=== PATIENT | female | born 1940 | race Asian ===

== ENCOUNTER 2020-05-02 00:34 | Inpatient (IN) | payer MEDICARE, MEDICAID ==
[2020-05-02] VITALS (8 sets, daily range): BP systolic 122–150; BP diastolic 71–85
[~2020-05-02] VITALS: Ht 154.9 cm; Wt 51.3 kg
--- NOTE | 2020-05-02 00:43 | Emergency Room Report ---
History of Present Illness General Chief Complaint: To Be Triaged Source: Patient Present Illness [facility] This is a 80-year-old female with history of high blood pressure. She presents with chief complaint of shortness of breath and fever. Onset tonight. Family found her with altered mental status and shaking. She also wears coughing and has some shortness of breath. They called 911. No nausea no vomiting. No pain. Nothing made it better. Nothing made it worse. Did not take any medication. Allergies: Coded Allergies: No Known Allergies (Unverified , 05/02/20) COVID-19 Screening Contact w/high risk pt: No Recent Travel to affected area: No Experienced COVID-19 symptoms?: Yes COVID-19 symptoms experienced: Fever (T>100.4F or >38C), Shortness of Breath, Cough COVID-19 Testing performed RESIDENTIAL CARE FACILITY MANAGER: No Patient History Past Medical History: see triage record, old chart reviewed, HTN Past Surgical History: none Pertinent Family History: none Social History: Denies: smoking Now: No Immunizations: other Reviewed Nursing Documentation: PMH: Agreed; PSxH: Agreed Review of Systems Constitutional: Reports: fever, weakness Eye: Denies: eye pain, blurred vision ENT: Denies: ear pain, nose congestion, throat swelling Respiratory: Reports: cough, shortness of breath Cardiovascular: Denies: chest pain, palpitations Gastrointestinal: Denies: abdominal pain, diarrhea, nausea, vomiting Musculoskeletal: Denies: back pain, joint pain Skin: Denies: rash Neurological: Denies: headache, numbness Endocrine: Denies: increased thirst, increased urine Hematologic/Lymphatic: Denies: easy bruising All Other Systems: negative except mentioned in HPI Physical Exam Vitals with fever Sp02 EP Interpretation: reviewed, normal General Appearance: well appearing, alert, mild distress Head: normocephalic, atraumatic Eyes: bilateral eye PERRL, bilateral eye EOMI ENT: hearing grossly normal, normal pharynx Neck: full range of motion, supple, no meningismus Respiratory: chest non-tender, lungs clear, normal breath sounds Cardiovascular #1: regular rate, rhythm, no murmur Gastrointestinal: normal bowel sounds, non tender, no mass, no organomegaly, no bruit, non-distended Musculoskeletal: back normal, normal range of motion, gait/station normal Psychiatric: mood/affect normal Procedures Critical Care Time Critical Care Time Critical care is mandated in this patient who presented with sepsis from pneumonia and UTI. Patient require my urgent intervention to attenuate the risks of metabolic collapse which may lead to cardiovascular collapse and . Critical care time is 35 minutes excluding any reportable procedure. Critical care time included evaluation, multiple reevaluation, looking at old charts, interpreting laboratory and diagnostic data, discussing case with patient and family and consultants, and charting. Medical Decision Making Diagnostic Impression: Primary Impression: Sepsis Qualified Codes: A41.9 - Sepsis, unspecified organism Additional Impressions: CAP (community acquired pneumonia) Qualified Codes: J18.9 - Pneumonia, unspecified organism UTI (urinary tract infection) Qualified Codes: N30.00 - Acute cystitis without hematuria ACS (acute coronary syndrome) Suspected 2019 novel coronavirus infection Anemia Qualified Codes: D64.9 - Anemia, unspecified ER Course Patient presents with fever and rigors. Chest x-ray showed left lower lobe infiltrate. She also has a Porter tract infection. I suspect that she also has COVID infection even though her rapid COVID test was negative. She has elevated d-dimer, ferritin and C-reactive protein. She may have a false negative. Patient improved with IV fluids and antibiotics. Will admit for further monitoring and medication. I contacted Dr. David for admission. This patient was evaluated in the context of the global COVID-19 pandemic, which necessitated consideration that the patient might be at risk for infection with the [id number] virus that causes COVID-19. Institutional protocols and algorithms that pertain to the evaluation of patients at risk for COVID-19 and the state of rapid change based on information released by multiple regulatory bodies including the CDC and federal and state organizations. These policies and algorithms were followed during the patient' s care in the ED. EKG Diagnostic Results Rate: tachycardiac Rhythm: NSR ST Segments: other - NSST changes Rhythm Strip Diag. Results EP Interpretation: yes Rate: 88 Rhythm: NSR, no PVC's, no ectopy Chest X-Ray Diagnostic Results Chest X-Ray Diagnostic Results : Chest X-Ray Ordered: Yes # of Views/Limited/Complete: 1 View Indication: Shortness of Breath EP Interpretation: Yes Interpretation: no effusion, no pneumothorax, other - Left lower lobe infiltrate Impression: Other - Left lower lobe infiltrate Electronically Signed by: Edu Merida MD Status: improved Disposition: ADMITTED INPATIENT Condition: Serious Edu Merida MD May 02, 2020 00:43
[2020-05-02] MEDS ORDERED: Acetaminophen 500mg (ES) tab ORAL ONE (00:45)
[2020-05-02] MEDS ORDERED: cefTRIAXone 1 GM in NS 55 ML IVPB ONE (01:15)
[2020-05-02] MEDS ORDERED: Azithromycin 500 MG in NS 275 ML IV ONE (01:15)
[2020-05-02 01:16] LABS: HEMATOCRIT 35.2 % (37.0-47.0); HEMOGLOBIN 11.6 G/DL (12.0-16.0); MEAN CORPUSCULAR VOLUME 92 FL (80-99); PLATELET COUNT 166 K/UL (150-450); RED BLOOD COUNT 3.83 M/UL (4.20-5.40); RED CELL DISTRIBUTION WIDTH 11.6 % (11.6-14.8); WHITE BLOOD COUNT 13.8 K/UL (4.8-10.8)
[2020-05-02 01:16] LABS: BILIRUBIN, URINE NEGATIVE (NEGATIVE); GLUCOSE, URINE (UA) NEGATIVE (NEGATIVE); KETONES,URINE 1+ (NEGATIVE); LEUKOCYTE ESTERASE ,URINE 2+ (NEGATIVE); NITRITE,URINE POSITIVE (NEGATIVE); PH,URINE 6 (4.5-8.0); PROTEIN,URINE 3+ (NEGATIVE); UROBILINOGEN,URINE 4 MG/DL (0.0-1.0)
[2020-05-02 01:26] LABS: ANION GAP 14 mmol/L (5-15); BLOOD UREA NITROGEN 18 mg/dL (7-18); CALCIUM 8.2 MG/DL (8.5-10.1); CARBON DIOXIDE 22 MMOL/L (21-32); CHLORIDE 95 MMOL/L (98-107); CREATININE 1.2 MG/DL (0.55-1.30); POTASSIUM 4.1 MMOL/L (3.5-5.1); SODIUM 131 MMOL/L (136-145)
[2020-05-02 01:29] LABS: APPEARANCE,URINE SLIGHTLY CLOUDY; COLOR,URINE YELLOW
--- NOTE | 2020-05-02 01:43 | Diagnostic Imaging Report ---
EXAM: XR Chest, 1 View CLINICAL HISTORY: SOB TECHNIQUE: Frontal view of the chest. COMPARISON: No relevant prior studies available. FINDINGS: Lungs: Left basilar opacity. Pleural space: No acute findings Heart: cardiomegaly. Bones/joints: No acute findings. IMPRESSION: Severe cardiomegaly. Left basilar opacity, correlate with atelectasis, aspiration, or infection.
[2020-05-02 01:58] LABS: ALANINE AMINOTRANSFERASE 18 U/L (12-78); ALBUMIN 2.8 G/DL (3.4-5.0); ALBUMIN/GLOBULIN RATIO 0.7 (1.0-2.7); ALKALINE PHOSPHATASE 141 U/L (46-116); ASPARTATE AMINO TRANSFERASE 41 U/L (15-37); BILIRUBIN,TOTAL 1.2 MG/DL (0.2-1.0); CKMB 1.7 NG/ML (0.0-3.6); CREATINE KINASE 142 U/L (26-308); FERRITIN 479 NG/ML (8-388)
[2020-05-02 02:00] LABS: BILIRUBIN,DIRECT 0.3 MG/DL (0.0-0.3)
[2020-05-02] MEDS ORDERED: Enoxaparin 60mg Inj SUBQ ONE (02:15)
[2020-05-02] MEDS ORDERED: Aspirin Baby 81mg ORAL ONE (02:15)
--- NOTE | 2020-05-02 02:37 | Emergency Room Report ---
Sepsis Event Note Evaluation Current Stage of Sepsis: Sepsis Possible Source: Pulmonary, Genitourinary Focused Exam Allergies: Coded Allergies: No Known Allergies (Unverified , 05/02/20) Date Exam Occurred: May 02, 2020 Time Exam Occurred: 02:36 Laboratory Studies Laboratory Tests Test 05/02/20 00:45 05/02/20 00:50 White Blood Count 13.8 K/UL (4.8-10.8) H Red Blood Count 3.83 M/UL (4.20-5.40) L Hemoglobin 11.6 G/DL (12.0-16.0) L Hematocrit 35.2 % (37.0-47.0) L Mean Corpuscular Volume 92 FL (80-99) Mean Corpuscular Hemoglobin 30.3 PG (27.0-31.0) Mean Corpuscular Hemoglobin Concent 33.0 G/DL (32.0-36.0) Red Cell Distribution Width 11.6 % (11.6-14.8) Platelet Count 166 K/UL (150-450) Mean Platelet Volume 8.8 FL (6.5-10.1) Neutrophils (%) (Auto) % (45.0-75.0) Lymphocytes (%) (Auto) % (20.0-45.0) Monocytes (%) (Auto) % (1.0-10.0) Eosinophils (%) (Auto) % (0.0-3.0) Basophils (%) (Auto) % (0.0-2.0) D-Dimer 4.19 mg/L FEU (0.00-0.49) H Sodium Level 131 MMOL/L (136-145) L Potassium Level 4.1 MMOL/L (3.5-5.1) Chloride Level 95 MMOL/L (98-107) L Carbon Dioxide Level 22 MMOL/L (21-32) Anion Gap 14 mmol/L (5-15) Blood Urea Nitrogen 18 mg/dL (7-18) Creatinine 1.2 MG/DL (0.55-1.30) Estimat Glomerular Filtration Rate 43.3 mL/min (>60) Glucose Level 116 MG/DL (74-106) H Lactic Acid Level 2.50 mmol/L (0.4-2.0) H Calcium Level 8.2 MG/DL (8.5-10.1) L Ferritin 479 NG/ML (8-388) H Total Bilirubin 1.2 MG/DL (0.2-1.0) H Direct Bilirubin 0.3 MG/DL (0.0-0.3) Aspartate Amino Transf (AST/SGOT) 41 U/L (15-37) H Alanine Aminotransferase (ALT/SGPT) 18 U/L (12-78) Alkaline Phosphatase 141 U/L (46-116) H Total Creatine Kinase 142 U/L (26-308) Creatine Kinase MB 1.7 NG/ML (0.0-3.6) Creatine Kinase MB Relative Index 1.1 Troponin I 0.456 ng/mL (0.000-0.056) C-Reactive Protein, Quantitative 27.8 mg/dL (0.00-0.90) H Total Protein 6.9 G/DL (6.4-8.2) Albumin 2.8 G/DL (3.4-5.0) L Globulin 4.1 g/dL Albumin/Globulin Ratio 0.7 (1.0-2.7) L Urine Color Yellow Urine Appearance Slightly cloudy Urine pH 6 (4.5-8.0) Urine Specific [place] 1.010 (1.005-1.035) Urine Protein 3+ (NEGATIVE) H Urine Glucose (UA) Negative (NEGATIVE) Urine Ketones 1+ (NEGATIVE) H Urine Blood 3+ (NEGATIVE) H Urine Nitrite Positive (NEGATIVE) H Urine Bilirubin Negative (NEGATIVE) Urine Urobilinogen 4 MG/DL (0.0-1.0) H Urine Leukocyte Esterase 2+ (NEGATIVE) H Urine RBC 10-15 /HPF (0 - 2) H Urine WBC 40-60 /HPF (0 - 2) H Urine Squamous Epithelial Cells Few /LPF (NONE/OCC) Urine Bacteria Many /HPF (NONE) H Vital Signs Last 24 Hour Vital Signs Date Time Temp Pulse Resp B/P (MAP) Pulse Ox O2 Delivery O2 Flow Rate FiO2 05/02/20 00:52 100.9 87 16 145/71 (95) 96 Nasal Cannula 2.0 Respiratory Exam: Crackles Cardiovascular Exam: RRR Capillary Refill: Less Than 2 Seconds Peripheral Pulse: Strong Pulse Location: Radial Skin Exam: Normal Turgor Edu Merida MD May 02, 2020 02:37
[2020-05-02] MEDS ORDERED: Acetaminophen 500mg (ES) tab ORAL PRN (10:30)
[2020-05-02] MEDS ORDERED: FAMOTIDINE20 MG ORAL (10:55)
[2020-05-02] MEDS ORDERED: BENZTROPINE MESY1 MG ORAL (10:55)
[2020-05-02] MEDS ORDERED: CELECOXIB200 MG PO (11:03)
[2020-05-02] MEDS ORDERED: ALENDRONATE SOD10 MG ORAL (11:03)
[2020-05-02] MEDS ORDERED: BENICAR5 MG ORAL (11:03)
[2020-05-02] MEDS ORDERED: GABAPENTIN100 MG ORAL (11:03)
[2020-05-02] MEDS ORDERED: SINEMET 25-1001 EAC1 ORAL (11:03)
[2020-05-02] MEDS ORDERED: METOPROLOL SUCC25 MG ORAL (11:03)
[2020-05-02] MEDS ORDERED: ROPINIROLE HCL2 M1 PO (11:03)
[2020-05-02] MEDS ORDERED: TRAMADOL HCL100 M2 ORAL (11:03)
[2020-05-02] MEDS: Heparin 5000 units/ml inj SUBQ SCH ×2 (11:24→20:55)
[2020-05-02] MEDS: Aspirin EC 81mg tab ORAL SCH (11:24)
[2020-05-02] MEDS: Metoprolol Succinate XL 50mg tab ORAL SCH (11:25)
[2020-05-02] MEDS ORDERED: cefTRIAXone 1 GM in D5W 55 ML IVPB SCH (13:00)
--- NOTE | 2020-05-02 16:15 | Consultation ---
DATE OF CONSULTATION: 05/02/2020 INFECTIOUS DISEASES CONSULTATION REFERRING PHYSICIAN: Arsh Villa MD REASON FOR CONSULTATION: Pneumonia. HISTORY OF PRESENTING ILLNESS: This is a 80-year-old lady with history of hypertension, who came in with fever and shortness of breath along with cough. There is a concern for COVID-19 pneumonia and an infectious diseases consultation has been obtained for antibiotics. PAST MEDICAL HISTORY: History of hypertension. SOCIAL HISTORY: She does not smoke, drink, or use drugs. FAMILY HISTORY: Noncontributory. REVIEW OF SYSTEMS: RESPIRATORY: She has fever. She has cough. She has shortness of breath. No chest pain. CARDIAC: No chest pain. No palpitation. No dizziness. No syncope. GASTROINTESTINAL: No nausea. No vomiting. No abdominal pain or diarrhea. MEDICATIONS: As an inpatient, she is on ceftriaxone, aspirin, subcu heparin, Tylenol, metoprolol. ALLERGIES: No known drug allergies. PHYSICAL EXAMINATION: VITAL SIGNS: Temperature of 97.5, T-max of 100.9, pulse of 75, respiratory rate 18, blood pressure 149/74 O2 sat of 96% on room air. Examination deferred due to possibility of COVID-19 LABORATORY AND DIAGNOSTIC DATA: White count 13.8, hemoglobin 11.6, hematocrit 35.2, MCV 92, platelet count of 166. Sodium 131, potassium 4.1, chloride 95, bicarb 22, BUN 18, creatinine 1.2, glucose 116, calcium 8.2, ferritin 479. Total bilirubin 1.2, direct bilirubin 0.3. AST 41, ALT 18, alkaline phosphatase 141. CK 142, CK-MB 1.7. Troponin 0.456. C-reactive protein of 27.8. Total protein 6.9, albumin 2.8. UA is showing 40-60 white cells. COVID-19 rapid test is negative. Chest x-ray is showing left base opacity. ASSESSMENT: This is a 80-year-old lady with history of hypertension, who comes in with fever, cough, shortness of breath and is found to have: 1. Pneumonia, would like to rule out COVID-19 pneumonia as a possibility. Rapid test is negative. 2. Urinary tract infection. 3. Hypertension. 4. Elevated liver function tests. PLAN: 1. Continue ceftriaxone. 2. We will order urine cultures. 3. COVID-19 test is pending. 4. We will follow up cultures and adjust antibiotics accordingly. 5. Continue isolation. I would like to thank Dr. Villa for this consultation. Trupti Nuñez M.D. DR: NAVEEN JOB#: [id number] CC: Arsh Villa M.D.
[2020-05-02] MEDS: Levodopa/Carbidopa 25/100 tab ORAL SCH (20:52)
[2020-05-02] MEDS: rOPINIRole 0.25mg tab ORAL SCH (20:52)
[2020-05-02] MEDS: Metoprolol Tartrate 12.5mg TAB ORAL SCH (20:53)
--- NOTE | 2020-05-02 22:30 | Consultation ---
DATE OF CONSULTATION: 05/02/2020 CARDIOLOGY CONSULT CONSULTING PHYSICIAN: Jose Armando David M.D. REQUESTING PHYSICIAN: Arsh Villa M.D. 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 HISTORY OF PRESENT ILLNESS: This is a 80-year-old [place] female. She presented to the emergency room with shortness of breath and has been febrile. She has been confused, withdrawn, and lethargic according to family members and has been shaking at times uncontrollably. She has been alert during these periods and verbal and the shaking is not described as a seizure-like activity. The patient has been coughing and short of breath. No chest pain has been noted. No nausea or vomiting. No leg swelling. She has not been on any new medications. PAST MEDICAL HISTORY: Includes hypertension, osteoarthritis, osteoporosis, Parkinson disease. MEDICATIONS: Prior to admission, reviewed and reconciled. FAMILY HISTORY: Noncontributory. SOCIAL HISTORY: Negative for smoking, alcohol, or substance abuse. REVIEW OF SYSTEMS: A 10-point review of systems performed all negative other than noted above. PHYSICAL EXAMINATION: GENERAL: Awake, alert, thin and frail, in mild respiratory distress. VITAL SIGNS: Blood pressure 149/74, heart rate 75, respiratory rate 18, presently afebrile, oxygen saturation on room air 94% to 96%. Non-intension tremor, verbal. LUNGS: Bilateral breath sounds with rhonchi. CARDIAC: Regular rhythm. Rapid rate. Normal S1, S2. ABDOMEN: Soft, no edema. LABORATORY AND DIAGNOSTIC DATA: White count 13.8, hemoglobin 11.6. Sodium 131, potassium 4.1, chloride 95, bicarb 22, BUN 18, creatinine 1.2, glucose 116. Lactic acid 2.5. Troponin 0.456. Albumin 2.8. Urinalysis with 40 to 60 white cells. Chest x-ray with cardiomegaly, left basilar opacity. EKG with sinus tachycardia and nonspecific ST changes. IMPRESSION: 1. Acute myocardial ischemia versus possible [id number] myocardial infarction. 2. Community-acquired pneumonia. 3. Parkinson disease with tremor. 4. Urinary tract infection. 5. Severe sepsis. 6. Lactic acidosis. 7. Hyponatremia. 8. Hypochloremia. 9. Hypovolemia. 10. Elevated C-reactive protein. 11. Moderate protein-calorie malnutrition. 12. History of hypertension. PLAN: 1. Cardiac monitoring. 2. Antiplatelet therapy. 3. Consider beta-blockade if blood pressure parameters stable. 4. Saline hydration. 5. Intravenous antimicrobials. 6. Respiratory hygiene. 7. Await cultures and repeat COVID-19 as her first 1 was negative. 8. DVT prophylaxis. 9. Serial lactic acid levels. Jose Armando David M.D. DR: CODI JOB#: [id number] CC:
[2020-05-03] VITALS: BP 148/77
--- NOTE | 2020-05-03 00:29 | History and Physical Report ---
DATE OF ADMISSION: 05/02/2020 CHIEF COMPLAINTS: Pneumonia, possible COVID, respiratory insufficiency. HISTORY OF PRESENT ILLNESS: Ms. Friedman is a 80-year-old female. She has a history of hypertensive heart disease and presented with complaints of cough and congestion for one week. She is a poor historian. She is unable to provide any additional history except for the cough and congestion. She states she has a history of blood pressure problems. She denies any chest pain. She has had no known ill contacts. Does not know of any exposure to COVID patients. She was COVID negative in the ER. Chest x-ray showed a left lower lobe infiltrate. She had a fever and had a leukocytosis of 14,000. The patient was pancultured. She is now admitted for further evaluation and care. PAST MEDICAL HISTORY: As above. PAST SURGICAL HISTORY: None. CURRENT MEDICATIONS: The patient does not recall. ALLERGIES: None. FAMILY HISTORY: Unknown. SOCIAL HISTORY: The patient denies any history of tobacco, ethanol, or drugs. REVIEW OF SYSTEMS: GENERAL: Positive fevers, chills, but no night sweats. HEENT: No headaches or visual changes. CARDIOPULMONARY: Positive cough, congestion, and shortness of breath. GI: No nausea or vomiting. : No urgency or frequency. MUSCULOSKELETAL: No joint pain or swelling. NEURO: No evidence of history of seizures. PHYSICAL EXAMINATION: VITAL SIGNS: Temperature 97, pulse 77, respirations 20, blood pressure 150/78. GENERAL APPEARANCE: The patient is well-developed, in no apparent distress. Awake and alert. HEENT: Head is normocephalic, atraumatic. Pupils are equal, round, and reactive to light. Sclerae are anicteric. Oropharynx is clear. Mucous membranes are dry. NECK: Supple. HEART: Regular rate and rhythm without murmurs, rubs, or gallops. LUNGS: Clear to auscultation bilaterally. ABDOMEN: Soft, nontender, nondistended. EXTREMITIES: No clubbing, cyanosis, or edema. LABORATORY AND DIAGNOSTIC DATA: Chest x-ray showed left lower lobe infiltrate. EKG showed sinus rhythm. Sodium was 131, potassium is 4, BUN 18, creatinine is 1.2. Lactic acid was 2.4. Total bilirubin of 1.2. Troponin 0.456. C-reactive protein was 28. ASSESSMENT: This is an elderly female with a history of hypertension, admitted with complaints of cough and congestion secondary to community-acquired pneumonia, cannot rule out COVID-19. She also was noted to have hyponatremia, lactic acidosis, and elevated troponin. PLAN: IV antibiotics. ID consultation. Aspirin treatment. Beta blockade. Repeat troponin. Check a 2D-echo. Check a venous duplex. We will follow up pending cultures, monitor chest x-ray. Hydration with normal saline. Monitor sodium level. Arsh Villa M.D. DR: EMERALD JOB#: [id number] CC:
[2020-05-03 04:00] VITALS: BP 154/79
[2020-05-03 04:50] LABS: BASOPHILS % (AUTO) 0.2 % (0.0-2.0); HEMATOCRIT 31.5 % (37.0-47.0); HEMOGLOBIN 10.4 G/DL (12.0-16.0); LYMPHOCYTES % (AUTO) 10.2 % (20.0-45.0); MEAN CORPUSCULAR VOLUME 91 FL (80-99); MONOCYTES % (AUTO) 8.7 % (1.0-10.0); NEUTROPHILS % (AUTO) 80.9 % (45.0-75.0); PLATELET COUNT 195 K/UL (150-450); RED BLOOD COUNT 3.46 M/UL (4.20-5.40); RED CELL DISTRIBUTION WIDTH 11.8 % (11.6-14.8); WHITE BLOOD COUNT 10.1 K/UL (4.8-10.8)
[2020-05-03 05:05] LABS: ALANINE AMINOTRANSFERASE 12 U/L (12-78); ALBUMIN 2.3 G/DL (3.4-5.0); ALBUMIN/GLOBULIN RATIO 0.6 (1.0-2.7); ALKALINE PHOSPHATASE 110 U/L (46-116); ANION GAP 13 mmol/L (5-15); ASPARTATE AMINO TRANSFERASE 37 U/L (15-37); BILIRUBIN,TOTAL 0.4 MG/DL (0.2-1.0); BLOOD UREA NITROGEN 18 mg/dL (7-18); CALCIUM 7.2 MG/DL (8.5-10.1); CARBON DIOXIDE 21 MMOL/L (21-32); CHLORIDE 105 MMOL/L (98-107); CHOLESTEROL 141 MG/DL (< 200); HDL CHOLESTEROL 25 MG/DL (40-60); POTASSIUM 3.2 MMOL/L (3.5-5.1); SODIUM 139 MMOL/L (136-145); TRIGLYCERIDES 92 MG/DL (30-150)
[2020-05-03 08:00] VITALS: BP 142/56
[2020-05-03] MEDS: Metoprolol Tartrate 12.5mg TAB ORAL SCH (08:50)
--- NOTE | 2020-05-03 08:50 | General Progress Note ---
Assessment/Plan Problem List: (1) Anemia ICD Codes: D64.9 - Anemia, unspecified SNOMED: 063987707 Qualifiers: Qualified Codes: D64.9 - Anemia, unspecified (2) Sepsis ICD Codes: A41.9 - Sepsis, unspecified organism SNOMED: 83293164 Qualifiers: Qualified Codes: A41.9 - Sepsis, unspecified organism (3) UTI (urinary tract infection) ICD Codes: N39.0 - Urinary tract infection, site not specified SNOMED: 08913052 Qualifiers: Qualified Codes: N30.00 - Acute cystitis without hematuria (4) Suspected 2019 novel coronavirus infection ICD Codes: Z20.828 - Contact with and (suspected) exposure to other viral communicable diseases SNOMED: 853898121 (5) CAP (community acquired pneumonia) ICD Codes: J18.9 - Pneumonia, unspecified organism SNOMED: 600731806 Qualifiers: Qualified Codes: J18.9 - Pneumonia, unspecified organism (6) ACS (acute coronary syndrome) ICD Codes: I24.9 - Acute ischemic heart disease, unspecified SNOMED: 076190911 (7) Acute VT ICD Codes: I21.9 - Acute myocardial infarction, unspecified SNOMED: 55533033 Status: stable Assessment/Plan: cont current rx iv abx follow up cultures monitor cxr follow 2nd covid test swallow eval antiplt rx and B-blockade cards follow up Subjective ROS Limited/Unobtainable: No Constitutional: Reports: malaise, weakness HEENT: Reports: no symptoms Cardiovascular: Reports: no symptoms Respiratory: Reports: cough Gastrointestinal/Abdominal: Reports: no symptoms Genitourinary: Reports: no symptoms Neurologic/Psychiatric: Reports: anxiety Endocrine: Reports: no symptoms Hematologic/Lymphatic: Reports: no symptoms Allergies: Coded Allergies: No Known Allergies (Unverified , 05/02/20) All Systems: reviewed and negative except above Subjective no events. stable. no fever or chills. mild cough. 2nd covid test still pending. low k noted. on iv abx Objective Last 24 Hour Vital Signs Date Time Temp Pulse Resp B/P (MAP) Pulse Ox O2 Delivery O2 Flow Rate FiO2 05/03/20 04:00 98.2 61 18 154/79 (104) 94 05/03/20 04:00 71 7/12/20 00:00 57 05/03/20 00:00 98.0 59 19 148/77 (100) 95 05/02/20 21:00 Room Air 05/02/20 20:53 80 133/74 05/02/20 20:00 68 05/02/20 20:00 98.2 80 19 133/74 (93) 95 05/02/20 16:00 97.9 65 18 145/72 (96) 96 05/02/20 15:56 71 05/02/20 12:00 97.7 77 20 150/78 (102) 97 05/02/20 11:33 79 05/02/20 11:25 75 149/74 05/02/20 09:00 Room Air Intake and Output 05/02/20 05/03/20 19:00 07:00 Intake Total 360 ml 300 ml Balance 360 ml 300 ml Intake Oral 360 ml 300 ml # Voids 3 3 # Bowel Movements 1 Laboratory Tests 05/03/20 04:00: White Blood Count 10.1, Red Blood Count 3.46L, Hemoglobin 10.4L, Hematocrit 31.5L, Mean Corpuscular Volume 91, Mean Corpuscular Hemoglobin 30.0, Mean Corpuscular Hemoglobin Concent 33.0, Red Cell Distribution Width 11.8, Platelet Count 195, Mean Platelet Volume 8.5, Neutrophils (%) (Auto) 80.9H, Lymphocytes ( %) (Auto) 10.2L, Monocytes (%) (Auto) 8.7, Eosinophils (%) (Auto) 0.0, Basophils (%) (Auto) 0.2, Sodium Level 139, Potassium Level 3.2L, Chloride Level 105, Carbon Dioxide Level 21, Anion Gap 13, Blood Urea Nitrogen 18, Creatinine 1.0, Estimat Glomerular Filtration Rate 53.5, Glucose Level 140H, Calcium Level 7.2L, Magnesium Level 1.9, Total Bilirubin 0.4, Aspartate Amino Transf (AST/SGOT) 37, Alanine Aminotransferase (ALT/SGPT) 12, Alkaline Phosphatase 110, Troponin I 1.727H, Total Protein 5.9L, Albumin 2.3L, Globulin 3.6, Albumin/Globulin Ratio 0.6L, Triglycerides Level 92, Cholesterol Level 141 , LDL Cholesterol 98, HDL Cholesterol 25L, Cholesterol/HDL Ratio 5.6H Height (Feet): 5 Height (Inches): 1.00 Weight (Pounds): 110 General Appearance: WD/WN, no apparent distress, alert EENT: PERRL/EOMI, normal ENT inspection Neck: non-tender, normal alignment Cardiovascular: normal peripheral pulses, normal rate, regular rhythm Respiratory/Chest: chest wall non-tender, lungs clear, normal breath sounds Abdomen: normal bowel sounds, non tender, soft, no organomegaly Edema: no edema noted Arm (L), no edema noted Arm (R) Skin: normal pigmentation Lymphatic: normal anterior cervical (L), normal anterior cervical (R) Arsh Villa MD May 03, 2020 08:50
[2020-05-03] MEDS: Metoprolol Succinate XL 50mg tab ORAL SCH (08:51)
[2020-05-03] MEDS: Levodopa/Carbidopa 25/100 tab ORAL SCH ×3 (08:51→17:35)
[2020-05-03] MEDS: Aspirin EC 81mg tab ORAL SCH (08:51)
[2020-05-03] MEDS: Heparin 5000 units/ml inj SUBQ SCH ×2 (08:52→22:18)
[2020-05-03] MEDS: rOPINIRole 0.25mg tab ORAL SCH ×3 (08:53→17:35)
[2020-05-03] MEDS: Lisinopril 10mg tab ORAL SCH (08:59)
[2020-05-03 12:00] VITALS: BP 148/78
--- NOTE | 2020-05-03 12:46 | Infectious Diseases Prog Note ---
Assessment/Plan Assessment/Plan A; 1. Pneumonia, COVID-19 rapid test is negative. 2. Urinary tract infection. 3. Hypertension. 4. Elevated liver function tests. 5. Elevated troponin 6. anemia PLAN: 1. Continue ceftriaxone. 2. We will follow urine cultures. Subjective ROS Limited/Unobtainable: Yes Constitutional: Denies: fever Allergies: Coded Allergies: No Known Allergies (Unverified , 05/02/20) Objective Last 24 Hour Vital Signs Date Time Temp Pulse Resp B/P (MAP) Pulse Ox O2 Delivery O2 Flow Rate FiO2 05/03/20 09:00 Room Air 05/03/20 08:59 142/56 05/03/20 08:51 72 142/56 05/03/20 08:50 72 142/56 05/03/20 08:00 97.9 72 18 142/56 (84) 96 05/03/20 07:42 74 05/03/20 04:00 98.2 61 18 154/79 (104) 94 05/03/20 04:00 71 05/03/20 00:00 57 05/03/20 00:00 98.0 59 19 148/77 (100) 95 05/02/20 21:00 Room Air 05/02/20 20:53 80 133/74 05/02/20 20:00 68 05/02/20 20:00 98.2 80 19 133/74 (93) 95 05/02/20 16:00 97.9 65 18 145/72 (96) 96 05/02/20 15:56 71 Height (Feet): 5 Height (Inches): 1.00 Weight (Pounds): 110 General Appearance: no acute distress HEENT: mucous membranes moist Respiratory/Chest: lungs clear Cardiovascular: normal rate Abdomen: soft, non tender Extremities: no edema Skin: no rash Neurologic/Psychiatric: alert, responsive Microbiology Date/Time Source Procedure Growth Status 05/02/20 01:00 Blood Blood Culture - Preliminary NO GROWTH AFTER 24 HOURS Resulted 05/02/20 00:45 Blood Blood Culture - Preliminary Resulted 05/02/20 00:45 Nasopharynx SARS-CoV-2 RdRp Gene Assay - Final Complete 05/02/20 00:50 Urine,Clean Catch Urine Culture - Preliminary Gram Negative Bacillus 1 Resulted Laboratory Tests Test 05/03/20 04:00 7/12/20 11:45 White Blood Count 10.1 K/UL (4.8-10.8) Red Blood Count 3.46 M/UL (4.20-5.40) L Hemoglobin 10.4 G/DL (12.0-16.0) L Hematocrit 31.5 % (37.0-47.0) L Mean Corpuscular Volume 91 FL (80-99) Mean Corpuscular Hemoglobin 30.0 PG (27.0-31.0) Mean Corpuscular Hemoglobin Concent 33.0 G/DL (32.0-36.0) Red Cell Distribution Width 11.8 % (11.6-14.8) Platelet Count 195 K/UL (150-450) Mean Platelet Volume 8.5 FL (6.5-10.1) Neutrophils (%) (Auto) 80.9 % (45.0-75.0) H Lymphocytes (%) (Auto) 10.2 % (20.0-45.0) L Monocytes (%) (Auto) 8.7 % (1.0-10.0) Eosinophils (%) (Auto) 0.0 % (0.0-3.0) Basophils (%) (Auto) 0.2 % (0.0-2.0) Sodium Level 139 MMOL/L (136-145) Potassium Level 3.2 MMOL/L (3.5-5.1) L Chloride Level 105 MMOL/L (98-107) Carbon Dioxide Level 21 MMOL/L (21-32) Anion Gap 13 mmol/L (5-15) Blood Urea Nitrogen 18 mg/dL (7-18) Creatinine 1.0 MG/DL (0.55-1.30) Estimat Glomerular Filtration Rate 53.5 mL/min (>60) Glucose Level 140 MG/DL (74-106) H Calcium Level 7.2 MG/DL (8.5-10.1) L Magnesium Level 1.9 MG/DL (1.8-2.4) Total Bilirubin 0.4 MG/DL (0.2-1.0) Aspartate Amino Transf (AST/SGOT) 37 U/L (15-37) Alanine Aminotransferase (ALT/SGPT) 12 U/L (12-78) Alkaline Phosphatase 110 U/L (46-116) Troponin I 1.727 ng/mL (0.000-0.056) 1.899 ng/mL (0.000-0.056) Total Protein 5.9 G/DL (6.4-8.2) L Albumin 2.3 G/DL (3.4-5.0) L Globulin 3.6 g/dL Albumin/Globulin Ratio 0.6 (1.0-2.7) L Triglycerides Level 92 MG/DL (30-150) Cholesterol Level 141 MG/DL (< 200) LDL Cholesterol 98 mg/dL (<100) HDL Cholesterol 25 MG/DL (40-60) L Cholesterol/HDL Ratio 5.6 (3.3-4.4) H Current Medications Medications (Trade) Dose Ordered Sig/Trevor Route PRN Reason Start Time Stop Time Status Last Admin Dose Admin Acetaminophen (Tylenol) 500 mg Q4H PRN ORAL Mild Pain (Pain Scale 1-3) 05/02/20 10:30 06/01/20 10:29 05/03/20 02:32 Aspirin (Ecotrin) 81 mg DAILY ORAL 05/02/20 10:30 06/16/20 10:29 05/03/20 08:51 Carbidopa/Levodopa (Sinemet 25/100) 1 tab THREE TIMES A DAY ORAL 05/02/20 20:00 06/01/20 19:59 05/03/20 08:51 Heparin Sodium (Porcine) (Heparin 5000 units/ml) 5,000 units EVERY 12 HOURS SUBQ 05/02/20 10:30 06/16/20 10:29 05/03/20 08:52 Lisinopril (ZestriL) 10 mg DAILY ORAL 05/03/20 09:00 06/02/20 08:59 05/03/20 08:59 Metoprolol Succinate (Toprol XL) 25 mg DAILY ORAL 05/02/20 10:30 07/31/20 10:29 05/03/20 08:51 Metoprolol Tartrate (Lopressor) 12.5 mg Q12HR ORAL 05/02/20 21:00 07/31/20 20:59 05/03/20 08:50 Piperacillin Sod/ Tazobactam Sod 3.375 gm/Sodium Chloride 110 ml @ 27.5 mls/hr EVERY 8 HOURS IVPB 05/03/20 14:00 05/08/20 13:59 Ropinirole HCl (Requip) 0.25 mg THREE TIMES A DAY ORAL 05/02/20 20:30 06/01/20 20:29 05/03/20 08:53 Sodium Chloride 1,000 ml @ 75 mls/hr [id number] IV 05/02/20 11:00 06/01/20 10:59 05/03/20 00:54 Celio Hwang MD May 03, 2020 12:46
[2020-05-03] MEDS: Piperacillin/Tazobactam 3.375 GM in NS 110 ML IVPB SCH ×2 (13:49→22:19)
[2020-05-03 16:00] VITALS: BP 139/79
[2020-05-03 20:00] VITALS: BP 152/78
[2020-05-04] VITALS: BP 148/71
[2020-05-04 04:00] VITALS: BP 159/77
[2020-05-04] MEDS: Piperacillin/Tazobactam 3.375 GM in NS 110 ML IVPB SCH ×3 (05:50→21:41)
[2020-05-04 07:17] LABS: BASOPHILS % (AUTO) 0.5 % (0.0-2.0); EOSINOPHILS % (AUTO) 1.2 % (0.0-3.0); HEMATOCRIT 31.6 % (37.0-47.0); HEMOGLOBIN 10.3 G/DL (12.0-16.0); LYMPHOCYTES % (AUTO) 20.2 % (20.0-45.0); MEAN CORPUSCULAR VOLUME 93 FL (80-99); MONOCYTES % (AUTO) 12.5 % (1.0-10.0); NEUTROPHILS % (AUTO) 65.6 % (45.0-75.0); PLATELET COUNT 181 K/UL (150-450); RED BLOOD COUNT 3.41 M/UL (4.20-5.40); WHITE BLOOD COUNT 6.4 K/UL (4.8-10.8)
[2020-05-04 08:09] LABS: ALANINE AMINOTRANSFERASE 14 U/L (12-78); ALBUMIN 2.2 G/DL (3.4-5.0); ALBUMIN/GLOBULIN RATIO 0.6 (1.0-2.7); ALKALINE PHOSPHATASE 96 U/L (46-116); ANION GAP 11 mmol/L (5-15); ASPARTATE AMINO TRANSFERASE 52 U/L (15-37); BILIRUBIN,TOTAL 0.5 MG/DL (0.2-1.0); BLOOD UREA NITROGEN 18 mg/dL (7-18); CALCIUM 7.4 MG/DL (8.5-10.1); CARBON DIOXIDE 21 MMOL/L (21-32); CHLORIDE 111 MMOL/L (98-107); CREATININE 0.9 MG/DL (0.55-1.30); POTASSIUM 3.5 MMOL/L (3.5-5.1); SODIUM 143 MMOL/L (136-145)
[2020-05-04 08:26] VITALS: BP 176/76
[2020-05-04] MEDS: Heparin 5000 units/ml inj SUBQ SCH ×2 (08:49→21:40)
[2020-05-04] MEDS: rOPINIRole 0.25mg tab ORAL SCH ×3 (08:49→17:42)
[2020-05-04] MEDS: Levodopa/Carbidopa 25/100 tab ORAL SCH ×3 (08:49→17:42)
[2020-05-04] MEDS: Aspirin EC 81mg tab ORAL SCH (08:49)
[2020-05-04] MEDS: Lisinopril 10mg tab ORAL SCH (08:50)
[2020-05-04] MEDS ORDERED: Tubing IV Secondary IV ONE (09:10)
--- NOTE | 2020-05-04 09:46 | General Progress Note ---
Assessment/Plan Problem List: (1) Anemia ICD Codes: D64.9 - Anemia, unspecified SNOMED: 654169220 Qualifiers: Qualified Codes: D64.9 - Anemia, unspecified (2) Sepsis ICD Codes: A41.9 - Sepsis, unspecified organism SNOMED: 39952869 Qualifiers: Qualified Codes: A41.9 - Sepsis, unspecified organism (3) UTI (urinary tract infection) ICD Codes: N39.0 - Urinary tract infection, site not specified SNOMED: 08298457 Qualifiers: Qualified Codes: N30.00 - Acute cystitis without hematuria (4) Suspected 2019 novel coronavirus infection ICD Codes: Z20.828 - Contact with and (suspected) exposure to other viral communicable diseases SNOMED: 368186467 (5) CAP (community acquired pneumonia) ICD Codes: J18.9 - Pneumonia, unspecified organism SNOMED: 785863429 Qualifiers: Qualified Codes: J18.9 - Pneumonia, unspecified organism (6) ACS (acute coronary syndrome) ICD Codes: I24.9 - Acute ischemic heart disease, unspecified SNOMED: 728338343 (7) Acute [place] ICD Codes: I21.9 - Acute myocardial infarction, unspecified SNOMED: 38158314 Status: stable Assessment/Plan: cont current rx iv abx follow up culturesrepeat cxr dc ivf increase courtney follow 2nd covid test swallow eval antiplt rx and B-blockade cards follow up Subjective ROS Limited/Unobtainable: No Constitutional: Reports: malaise, weakness HEENT: Reports: no symptoms Cardiovascular: Reports: no symptoms Respiratory: Reports: cough Gastrointestinal/Abdominal: Reports: no symptoms Genitourinary: Reports: no symptoms Neurologic/Psychiatric: Reports: no symptoms Endocrine: Reports: no symptoms Hematologic/Lymphatic: Reports: no symptoms Allergies: Coded Allergies: No Known Allergies (Unverified , 05/02/20) All Systems: reviewed and negative except above Subjective no events. stable. no fever or chills. mild cough. 2nd covid test still pending. low k noted. on iv abx. bp up. on ivf, Objective Last 24 Hour Vital Signs Date Time Temp Pulse Resp B/P (MAP) Pulse Ox O2 Delivery O2 Flow Rate FiO2 05/04/20 08:51 52 176/76 05/04/20 08:50 176/76 05/04/20 08:26 97.9 20 176/76 (109) 100 05/04/20 04:00 41 05/04/20 04:00 98.4 51 20 159/77 (104) 98 05/04/20 00:00 98.6 51 20 148/71 (96) 95 05/04/20 00:00 49 05/03/20 21:00 54 152/78 05/03/20 21:00 Room Air 05/03/20 20:00 55 05/03/20 20:00 98.3 54 20 152/78 (102) 95 05/03/20 18:30 58 139/79 05/03/20 16:00 97.5 58 18 139/79 (99) 95 05/03/20 15:28 63 05/03/20 12:00 96.8 63 19 148/78 (101) 96 05/03/20 11:46 70 Intake and Output 05/03/20 05/04/20 19:00 07:00 Intake Total 240 ml 100 ml Balance 240 ml 100 ml Intake Oral 240 ml 100 ml # Voids 3 3 # Bowel Movements 2 1 Laboratory Tests 05/03/20 11:45: Troponin I 1.899H 05/04/20 06:00: White Blood Count 6.4, Red Blood Count 3.41L, Hemoglobin 10.3L, Hematocrit 31.6L , Mean Corpuscular Volume 93, Mean Corpuscular Hemoglobin 30.2, Mean Corpuscular Hemoglobin Concent 32.6, Red Cell Distribution Width 12.0, Platelet Count 181, Mean Platelet Volume 7.7, Neutrophils (%) (Auto) 65.6, Lymphocytes (% ) (Auto) 20.2, Monocytes (%) (Auto) 12.5H, Eosinophils (%) (Auto) 1.2, Basophils (%) (Auto) 0.5, Sodium Level 143, Potassium Level 3.5, Chloride Level 111H, Carbon Dioxide Level 21, Anion Gap 11, Blood Urea Nitrogen 18, Creatinine 0.9, Estimat Glomerular Filtration Rate > 60, Glucose Level 98, Calcium Level 7.4L, Total Bilirubin 0.5, Aspartate Amino Transf (AST/SGOT) 52H, Alanine Aminotransferase (ALT/SGPT) 14, Alkaline Phosphatase 96, Total Protein 5.7L, Albumin 2.2L, Globulin 3.5, Albumin/Globulin Ratio 0.6L Height (Feet): 5 Height (Inches): 1.00 Weight (Pounds): 110 Objective General Appearance: WD/WN, no apparent distress, alert EENT: PERRL/EOMI, normal ENT inspection Neck: non-tender, normal alignment Cardiovascular: normal peripheral pulses, normal rate, regular rhythm Respiratory/Chest: chest wall non-tender, lungs clear, normal breath sounds Abdomen: normal bowel sounds, non tender, soft, no organomegaly Edema: no edema noted Arm (L), no edema noted Arm (R) Skin: normal pigmentation Lymphatic: normal anterior cervical (L), normal anterior cervical (R) Arsh Villa MD May 04, 2020 09:46
--- NOTE | 2020-05-04 11:20 | Infectious Diseases Prog Note ---
Assessment/Plan Assessment/Plan antibiotics : zosyn A 1. gram negative sepsis 2. e.coli UTI 3. pneumonia COVID 19 test negative x 2 4. hypertension P 1. continue zosyn 2. will follow up cultures 3. abdominal US Subjective Constitutional: Denies: fever, chills Respiratory: Denies: shortness of breath, dry cough Gastrointestinal/Abdominal: Denies: nausea, vomiting, diarrhea Musculoskeletal: Denies: pain Allergies: Coded Allergies: No Known Allergies (Unverified , 05/02/20) Objective Last 24 Hour Vital Signs Date Time Temp Pulse Resp B/P (MAP) Pulse Ox O2 Delivery O2 Flow Rate FiO2 05/04/20 10:30 49 05/04/20 09:00 Room Air 05/04/20 08:51 52 176/76 05/04/20 08:50 176/76 05/04/20 08:26 97.9 20 176/76 (109) 100 05/04/20 04:00 41 05/04/20 04:00 98.4 51 20 159/77 (104) 98 05/04/20 00:00 98.6 51 20 148/71 (96) 95 05/04/20 00:00 49 05/03/20 21:00 54 152/78 05/03/20 21:00 Room Air 05/03/20 20:00 55 05/03/20 20:00 98.3 54 20 152/78 (102) 95 05/03/20 18:30 58 139/79 05/03/20 16:00 97.5 58 18 139/79 (99) 95 05/03/20 15:28 63 05/03/20 12:00 96.8 63 19 148/78 (101) 96 05/03/20 11:46 70 Height (Feet): 5 Height (Inches): 1.00 Weight (Pounds): 110 Respiratory/Chest: lungs clear Cardiovascular: normal rate, regular rhythm, no gallop/murmur Abdomen: soft, non tender Extremities: no edema Microbiology Date/Time Source Procedure Growth Status 05/02/20 01:00 Blood Blood Culture - Preliminary NO GROWTH AFTER 48 HOURS Resulted 05/02/20 00:45 Blood Blood Culture - Preliminary Gram Negative Bacillus 1 Resulted 05/02/20 09:55 Nasopharynx Coronavirus COVID-19 PCR (TOBY) - Final Complete 05/02/20 00:45 Nasopharynx SARS-CoV-2 RdRp Gene Assay - Final Complete 05/02/20 00:50 Urine,Clean Catch Urine Culture - Final Escherichia Coli Complete Laboratory Tests Test 05/03/20 11:45 05/04/20 06:00 Troponin I 1.899 ng/mL (0.000-0.056) White Blood Count 6.4 K/UL (4.8-10.8) Red Blood Count 3.41 M/UL (4.20-5.40) L Hemoglobin 10.3 G/DL (12.0-16.0) L Hematocrit 31.6 % (37.0-47.0) L Mean Corpuscular Volume 93 FL (80-99) Mean Corpuscular Hemoglobin 30.2 PG (27.0-31.0) Mean Corpuscular Hemoglobin Concent 32.6 G/DL (32.0-36.0) Red Cell Distribution Width 12.0 % (11.6-14.8) Platelet Count 181 K/UL (150-450) Mean Platelet Volume 7.7 FL (6.5-10.1) Neutrophils (%) (Auto) 65.6 % (45.0-75.0) Lymphocytes (%) (Auto) 20.2 % (20.0-45.0) Monocytes (%) (Auto) 12.5 % (1.0-10.0) H Eosinophils (%) (Auto) 1.2 % (0.0-3.0) Basophils (%) (Auto) 0.5 % (0.0-2.0) Sodium Level 143 MMOL/L (136-145) Potassium Level 3.5 MMOL/L (3.5-5.1) Chloride Level 111 MMOL/L (98-107) H Carbon Dioxide Level 21 MMOL/L (21-32) Anion Gap 11 mmol/L (5-15) Blood Urea Nitrogen 18 mg/dL (7-18) Creatinine 0.9 MG/DL (0.55-1.30) Estimat Glomerular Filtration Rate > 60 mL/min (>60) Glucose Level 98 MG/DL (74-106) Calcium Level 7.4 MG/DL (8.5-10.1) L Total Bilirubin 0.5 MG/DL (0.2-1.0) Aspartate Amino Transf (AST/SGOT) 52 U/L (15-37) H Alanine Aminotransferase (ALT/SGPT) 14 U/L (12-78) Alkaline Phosphatase 96 U/L (46-116) Total Protein 5.7 G/DL (6.4-8.2) L Albumin 2.2 G/DL (3.4-5.0) L Globulin 3.5 g/dL Albumin/Globulin Ratio 0.6 (1.0-2.7) L Current Medications Medications (Trade) Dose Ordered Sig/Trevor Route PRN Reason Start Time Stop Time Status Last Admin Dose Admin Acetaminophen (Tylenol) 500 mg Q4H PRN ORAL Mild Pain (Pain Scale 1-3) 05/02/20 10:30 06/01/20 10:29 05/03/20 02:32 Aspirin (Ecotrin) 81 mg DAILY ORAL 05/02/20 10:30 06/16/20 10:29 05/04/20 08:49 Carbidopa/Levodopa (Sinemet 25/100) 1 tab THREE TIMES A DAY ORAL 05/02/20 20:00 06/01/20 19:59 05/04/20 08:49 Heparin Sodium (Porcine) (Heparin 5000 units/ml) 5,000 units EVERY 12 HOURS SUBQ 05/02/20 10:30 06/16/20 10:29 05/04/20 08:49 Lisinopril (ZestriL) 20 mg DAILY ORAL 05/05/20 09:00 06/04/20 08:59 Metoprolol Tartrate (Lopressor) 25 mg Q12HR ORAL 05/03/20 21:00 08/01/20 20:59 Piperacillin Sod/ Tazobactam Sod 3.375 gm/Sodium Chloride 110 ml @ 27.5 mls/hr EVERY 8 HOURS IVPB 05/03/20 14:00 05/08/20 13:59 05/04/20 05:50 Potassium Chloride (K-Dur) 20 meq DAILY ORAL 05/04/20 10:00 08/02/20 09:59 05/04/20 10:16 Ropinirole HCl (Requip) 0.25 mg THREE TIMES A DAY ORAL 05/02/20 20:30 06/01/20 20:29 05/04/20 08:49 Trupti Nuñez MD May 04, 2020 11:20
[2020-05-04 12:00] VITALS: BP 154/67
--- NOTE | 2020-05-04 15:15 | Diagnostic Imaging Report ---
Indication: Cough Technique: One view of the chest Comparison: 05/02/2020 Findings: The left hemidiaphragm is obscured. This is a new finding. There is some atelectasis in the right perihilar region. There is some central bronchial wall thickening. Lungs pleural spaces are otherwise clear. The heart size is normal. Impression: Obscured left hemidiaphragm, basilar atelectasis/consolidation and/or pleural fluid possible Right perihilar atelectasis
--- NOTE | 2020-05-04 15:24 | Diagnostic Imaging Report ---
Indication: I lateral leg pain Technique: Grayscale and duplex images of the bilateral lower extremity veins Comparison: None Findings: Bilaterally, grayscale and duplex images demonstrate no evidence of intraluminal thrombus. Normal phasic Doppler waveforms, demonstrating normal augmentation response and no evidence of valvular insufficiency. Greater saphenous vein(s) and tibial veins are patent. Normal compressibility. Impression: Negative for evidence of lower extremity deep venous thrombosis bilaterally
--- NOTE | 2020-05-04 15:26 | Diagnostic Imaging Report ---
Indication: Abnormal liver function tests, abdominal pain Technique: Connelly-scale and duplex images of the upper abdomen were obtained Comparison: none Findings: There are bilateral pleural effusions Gallbladder is unremarkable, without stones, wall thickening, nor pericholecystic fluid. Sonographic Gonzalez's sign is negative. Common bile duct measures 2 mm in diameter. No intrahepatic biliary ductal dilatation. Liver demonstrates normal echogenicity, no focal abnormality. Portal vein and hepatic veins are patent. Pancreas is unremarkable. Spleen is unremarkable. Left kidney measures 10.4 cm in length. Right kidney measures 9.8 cm length. Both kidneys demonstrate normal echogenicity. There is no hydronephrosis. No focal abnormality . Non-aneurysmal abdominal aorta . Impression: Bilateral pleural effusions Negative for gallstones, dilated ducts, or other significant abdominal abnormality
[2020-05-04 16:00] VITALS: BP 147/68
[2020-05-04 20:00] VITALS: BP 157/77
[2020-05-05] VITALS: BP 160/75
[2020-05-05 04:00] VITALS: BP 159/88
[2020-05-05] MEDS: Piperacillin/Tazobactam 3.375 GM in NS 110 ML IVPB SCH (05:05)
--- NOTE | 2020-05-05 06:00 | Progress Note ---
DATE: 05/04/2020 CARDIOLOGY PROGRESS NOTE SUBJECTIVE: No chest pain or shortness of breath. No fevers or chills. Slight cough. OBJECTIVE: VITAL SIGNS: Blood pressure now increasing from 148/77 to 176/76, heart rate 41 to 64, respiratory rate 18, and afebrile. LUNGS: Few rhonchi at the right. CARDIAC: Regular rhythm and rate. Normal S1, S2. ABDOMEN: Soft. EXTREMITIES: No edema. DIAGNOSTIC DATA: Chest x-ray notable for obscured hemidiaphragm on the right. IMPRESSION: 1. Acute myocardial infarction. 2. Hypertensive heart disease with rising blood pressure trend. 3. Probable pneumonia. 4. Parkinson disease. 5. Acute diastolic congestive heart failure. 6. Pleural effusion. 7. Dysphagia. 8. Hypokalemia. 9. Sinus bradycardia, on beta-mary grace. PLAN: 1. Hold parameters for beta-mary grace if heart rates continue to decrease. 2. Advance antihypertensives. 3. Diuresis. 4. Continue anti-platelet therapy. 5. Antimicrobials and respiratory hygiene. 6. DVT prophylaxis. 7. Follow up troponin levels and natriuretic peptide assay. 8. Condition remains critical with guarded prognosis. Jose Armando David M.D. DR: NEETA JOB#: [id number] CC:
--- NOTE | 2020-05-05 06:00 | Progress Note ---
DATE: 05/03/2020 CARDIOLOGY PROGRESS NOTE SUBJECTIVE: The patient is alert. No distress. Shaking less. No chest pain. The troponin levels have been elevated. Monitored rhythm sinus with rare atrial ectopics. OBJECTIVE: VITAL SIGNS: Blood pressure 154/79, pulse 61, respirations 18, and room air oxygen 94%. LUNGS: Clear. CARDIAC: Regular rhythm and rate. Normal S1, S2 with a fourth heart sound. There is a 1/6 systolic lower left sternal border systolic murmur. ABDOMEN: Soft and nontender. EXTREMITIES: No edema. LABORATORY DATA: Sodium 139, potassium 3.2, bicarb 21, BUN 18, and creatinine 1. Troponin 1.727, repeated 1.899. EKG with sinus rhythm, nonspecific ST change. Albumin 2.3. Total cholesterol 141 with LDL 98 and HDL 25. IMPRESSION: 1. Acute myocardial infarction. 2. Hypokalemia. 3. Severe protein-calorie malnutrition. 4. Low HDL syndrome. 5. Anemia. PLAN: 1. Continue cardiac monitoring. 2. Advance beta-blockade. 3. Continue anti-platelet therapy. 4. Replace potassium. 5. Recheck magnesium. 6. No emergent indication for cardiac catheterization at this time. 7. Check chest radiograph. Jose Armando David M.D. DR: Myron JOB#: [id number] CC:
[2020-05-05 06:56] LABS: BASOPHILS % (AUTO) 1.1 % (0.0-2.0); EOSINOPHILS % (AUTO) 1.8 % (0.0-3.0); HEMOGLOBIN 10.9 G/DL (12.0-16.0); LYMPHOCYTES % (AUTO) 14.3 % (20.0-45.0); MEAN CORPUSCULAR VOLUME 93 FL (80-99); MONOCYTES % (AUTO) 9.7 % (1.0-10.0); NEUTROPHILS % (AUTO) 73.1 % (45.0-75.0); PLATELET COUNT 224 K/UL (150-450); RED BLOOD COUNT 3.67 M/UL (4.20-5.40); WHITE BLOOD COUNT 7.9 K/UL (4.8-10.8)
[2020-05-05 07:30] LABS: ALANINE AMINOTRANSFERASE 37 U/L (12-78); ALBUMIN 2.3 G/DL (3.4-5.0); ALBUMIN/GLOBULIN RATIO 0.7 (1.0-2.7); ALKALINE PHOSPHATASE 100 U/L (46-116); ANION GAP 11 mmol/L (5-15); ASPARTATE AMINO TRANSFERASE 108 U/L (15-37); BILIRUBIN,TOTAL 0.6 MG/DL (0.2-1.0); BLOOD UREA NITROGEN 9 mg/dL (7-18); CALCIUM 7.4 MG/DL (8.5-10.1); CARBON DIOXIDE 22 MMOL/L (21-32); CHLORIDE 109 MMOL/L (98-107); CREATININE 0.9 MG/DL (0.55-1.30); POTASSIUM 3.4 MMOL/L (3.5-5.1); SODIUM 142 MMOL/L (136-145)
[2020-05-05 08:00] VITALS: BP 166/86
[2020-05-05] MEDS: Aspirin EC 81mg tab ORAL SCH (08:34)
[2020-05-05] MEDS: Levodopa/Carbidopa 25/100 tab ORAL SCH ×3 (08:34→17:57)
[2020-05-05] MEDS: rOPINIRole 0.25mg tab ORAL SCH ×3 (08:34→17:57)
[2020-05-05] MEDS: Heparin 5000 units/ml inj SUBQ SCH ×2 (08:35→21:11)
[2020-05-05] MEDS ORDERED: Lisinopril 10mg tab ORAL SCH ×2 (09:00→21:00)
--- NOTE | 2020-05-05 11:11 | Infectious Diseases Prog Note ---
Assessment/Plan Assessment/Plan antibiotics : zosyn A 1. e.coli sepsis secondary to UTI 2. e.coli UTI 3. pneumonia COVID 19 test negative x 2 4. hypertension P 1. d/c zosyn 2. start ceftriaxone 3. will follow up cultures Subjective Constitutional: Denies: fever, chills Respiratory: Denies: shortness of breath, dry cough Gastrointestinal/Abdominal: Denies: nausea, vomiting, diarrhea Musculoskeletal: Denies: pain Allergies: Coded Allergies: No Known Allergies (Unverified , 05/02/20) Objective Last 24 Hour Vital Signs Date Time Temp Pulse Resp B/P (MAP) Pulse Ox O2 Delivery O2 Flow Rate FiO2 05/05/20 08:34 166/86 05/05/20 08:34 84 166/86 05/05/20 08:09 Room Air 05/05/20 08:00 98.2 84 21 166/86 (112) 97 05/05/20 04:00 70 05/05/20 04:00 97.9 87 20 159/88 (111) 94 05/05/20 00:00 99.1 70 19 160/75 (103) 96 05/05/20 00:00 73 05/04/20 21:41 68 152/74 05/04/20 21:00 Room Air 05/04/20 20:00 97.9 66 19 157/77 (103) 95 05/04/20 20:00 67 05/04/20 16:00 97.9 64 20 147/68 (94) 95 05/04/20 16:00 66 05/04/20 12:00 59 05/04/20 12:00 97.9 57 20 154/67 (96) 96 Height (Feet): 5 Height (Inches): 1.00 Weight (Pounds): 110 Respiratory/Chest: lungs clear Cardiovascular: normal rate, regular rhythm, no gallop/murmur Abdomen: soft, non tender Extremities: no edema Laboratory Tests Test 05/05/20 05:47 White Blood Count 7.9 K/UL (4.8-10.8) Red Blood Count 3.67 M/UL (4.20-5.40) L Hemoglobin 10.9 G/DL (12.0-16.0) L Hematocrit 34.0 % (37.0-47.0) L Mean Corpuscular Volume 93 FL (80-99) Mean Corpuscular Hemoglobin 29.7 PG (27.0-31.0) Mean Corpuscular Hemoglobin Concent 32.0 G/DL (32.0-36.0) Red Cell Distribution Width 12.0 % (11.6-14.8) Platelet Count 224 K/UL (150-450) Mean Platelet Volume 7.3 FL (6.5-10.1) Neutrophils (%) (Auto) 73.1 % (45.0-75.0) Lymphocytes (%) (Auto) 14.3 % (20.0-45.0) L Monocytes (%) (Auto) 9.7 % (1.0-10.0) Eosinophils (%) (Auto) 1.8 % (0.0-3.0) Basophils (%) (Auto) 1.1 % (0.0-2.0) Sodium Level 142 MMOL/L (136-145) Potassium Level 3.4 MMOL/L (3.5-5.1) L Chloride Level 109 MMOL/L (98-107) H Carbon Dioxide Level 22 MMOL/L (21-32) Anion Gap 11 mmol/L (5-15) Blood Urea Nitrogen 9 mg/dL (7-18) Creatinine 0.9 MG/DL (0.55-1.30) Estimat Glomerular Filtration Rate > 60 mL/min (>60) Glucose Level 110 MG/DL (74-106) H Calcium Level 7.4 MG/DL (8.5-10.1) L Magnesium Level 2.0 MG/DL (1.8-2.4) Total Bilirubin 0.6 MG/DL (0.2-1.0) Aspartate Amino Transf (AST/SGOT) 108 U/L (15-37) H Alanine Aminotransferase (ALT/SGPT) 37 U/L (12-78) Alkaline Phosphatase 100 U/L (46-116) Troponin I 0.316 ng/mL (0.000-0.056) Pro-B-Type Natriuretic Peptide 9345 pg/mL (0-125) H Total Protein 5.7 G/DL (6.4-8.2) L Albumin 2.3 G/DL (3.4-5.0) L Globulin 3.4 g/dL Albumin/Globulin Ratio 0.7 (1.0-2.7) L Current Medications Medications (Trade) Dose Ordered Sig/Trevor Route PRN Reason Start Time Stop Time Status Last Admin Dose Admin Acetaminophen (Tylenol) 500 mg Q4H PRN ORAL Mild Pain (Pain Scale 1-3) 05/02/20 10:30 06/01/20 10:29 05/03/20 02:32 Aspirin (Ecotrin) 81 mg DAILY ORAL 05/02/20 10:30 06/16/20 10:29 05/05/20 08:34 Carbidopa/Levodopa (Sinemet /) 1 tab THREE TIMES A DAY ORAL 05/02/20 20:00 06/01/20 19:59 05/05/20 08:34 Heparin Sodium (Porcine) (Heparin 5000 units/ml) 5,000 units EVERY 12 HOURS SUBQ 05/02/20 10:30 06/16/20 10:29 05/05/20 08:35 Lisinopril (ZestriL) 20 mg DAILY ORAL 05/05/20 09:00 06/04/20 08:59 05/05/20 08:34 Metoprolol Tartrate (Lopressor) 25 mg Q12HR ORAL 05/03/20 21:00 08/01/20 20:59 05/05/20 08:34 Piperacillin Sod/ Tazobactam Sod 3.375 gm/Sodium Chloride 110 ml @ 27.5 mls/hr EVERY 8 HOURS IVPB 05/03/20 14:00 05/08/20 13:59 05/05/20 05:05 Potassium Chloride (K-Dur) 20 meq DAILY ORAL 05/04/20 10:00 08/02/20 09:59 05/05/20 08:34 Ropinirole HCl (Requip) 0.25 mg THREE TIMES A DAY ORAL 05/02/20 20:30 06/01/20 20:29 05/05/20 08:34 Trupti Nuñez MD May 05, 2020 11:11
[2020-05-05 11:59] VITALS: BP 125/52
[2020-05-05] MEDS ORDERED: cefTRIAXone 1 GM in D5W 55 ML IVPB SCH (12:00)
[2020-05-05 16:00] VITALS: BP 156/86
--- NOTE | 2020-05-05 17:14 | General Progress Note ---
Assessment/Plan Problem List: (1) Anemia ICD Codes: D64.9 - Anemia, unspecified SNOMED: 183755855 Qualifiers: Qualified Codes: D64.9 - Anemia, unspecified (2) Sepsis ICD Codes: A41.9 - Sepsis, unspecified organism SNOMED: 17985191 Qualifiers: Qualified Codes: A41.9 - Sepsis, unspecified organism (3) UTI (urinary tract infection) ICD Codes: N39.0 - Urinary tract infection, site not specified SNOMED: 93104648 Qualifiers: Qualified Codes: N30.00 - Acute cystitis without hematuria (4) Suspected 2019 novel coronavirus infection ICD Codes: Z20.828 - Contact with and (suspected) exposure to other viral communicable diseases SNOMED: 631667957 (5) CAP (community acquired pneumonia) ICD Codes: J18.9 - Pneumonia, unspecified organism SNOMED: 982465578 Qualifiers: Qualified Codes: J18.9 - Pneumonia, unspecified organism (6) ACS (acute coronary syndrome) ICD Codes: I24.9 - Acute ischemic heart disease, unspecified SNOMED: 836095631 (7) Acute [place] ICD Codes: I21.9 - Acute myocardial infarction, unspecified SNOMED: 15068882 Status: stable Assessment/Plan: cont current rx iv abx per id dc ivf BP rx swallow eval noted antiplt rx and B-blockade cards follow up Subjective ROS Limited/Unobtainable: No Constitutional: Reports: malaise, weakness HEENT: Reports: no symptoms Cardiovascular: Reports: no symptoms Respiratory: Reports: cough Gastrointestinal/Abdominal: Reports: no symptoms Genitourinary: Reports: no symptoms Neurologic/Psychiatric: Reports: no symptoms Endocrine: Reports: no symptoms Hematologic/Lymphatic: Reports: no symptoms Allergies: Coded Allergies: No Known Allergies (Unverified , 05/02/20) All Systems: reviewed and negative except above Subjective no events. stable. no fever or chills. mild cough. Ucx with ecoli. covid neg x 2 Objective Last 24 Hour Vital Signs Date Time Temp Pulse Resp B/P (MAP) Pulse Ox O2 Delivery O2 Flow Rate FiO2 05/05/20 16:00 98.1 59 18 156/86 (109) 05/05/20 16:00 63 05/05/20 12:00 64 05/05/20 11:59 97.9 57 19 125/52 (76) 94 05/05/20 08:34 166/86 05/05/20 08:34 84 166/86 05/05/20 08:09 Room Air 05/05/20 08:00 83 05/05/20 08:00 98.2 84 21 166/86 (112) 97 05/05/20 04:00 70 05/05/20 04:00 97.9 87 20 159/88 (111) 94 05/05/20 00:00 99.1 70 19 160/75 (103) 96 05/05/20 00:00 73 05/04/20 21:41 68 152/74 05/04/20 21:00 Room Air 05/04/20 20:00 97.9 66 19 157/77 (103) 95 05/04/20 20:00 67 Intake and Output 05/04/20 05/05/20 19:00 07:00 Intake Total 1225 ml 200 ml Balance 1225 ml 200 ml Intake Oral 975 ml 200 ml Other 250 ml # Voids 4 Laboratory Tests 05/05/20 05:47: White Blood Count 7.9, Red Blood Count 3.67L, Hemoglobin 10.9L, Hematocrit 34.0L , Mean Corpuscular Volume 93, Mean Corpuscular Hemoglobin 29.7, Mean Corpuscular Hemoglobin Concent 32.0, Red Cell Distribution Width 12.0, Platelet Count 224, Mean Platelet Volume 7.3, Neutrophils (%) (Auto) 73.1, Lymphocytes (% ) (Auto) 14.3L, Monocytes (%) (Auto) 9.7, Eosinophils (%) (Auto) 1.8, Basophils (%) (Auto) 1.1, Sodium Level 142, Potassium Level 3.4L, Chloride Level 109H, Carbon Dioxide Level 22, Anion Gap 11, Blood Urea Nitrogen 9, Creatinine 0.9, Estimat Glomerular Filtration Rate > 60, Glucose Level 110H, Calcium Level 7.4L , Magnesium Level 2.0, Total Bilirubin 0.6, Aspartate Amino Transf (AST/SGOT) 108H, Alanine Aminotransferase (ALT/SGPT) 37, Alkaline Phosphatase 100, Troponin I 0.316H, Pro-B-Type Natriuretic Peptide 9345H, Total Protein 5.7L, Albumin 2.3L, Globulin 3.4, Albumin/Globulin Ratio 0.7L Height (Feet): 5 Height (Inches): 1.00 Weight (Pounds): 110 Objective General Appearance: WD/WN, no apparent distress, alert EENT: PERRL/EOMI, normal ENT inspection Neck: non-tender, normal alignment Cardiovascular: normal peripheral pulses, normal rate, regular rhythm Respiratory/Chest: chest wall non-tender, lungs clear, normal breath sounds Abdomen: normal bowel sounds, non tender, soft, no organomegaly Edema: no edema noted Arm (L), no edema noted Arm (R) Skin: normal pigmentation Lymphatic: normal anterior cervical (L), normal anterior cervical (R) Arsh Villa MD May 05, 2020 17:14
[2020-05-05 20:00] VITALS: BP 167/79
[2020-05-06] VITALS: BP 172/80
--- NOTE | 2020-05-06 01:44 | Progress Note ---
DATE: 05/05/2020 CARDIOLOGY PROGRESS NOTE SUBJECTIVE: Patient has no chest pain or shortness of breath. Monitor, sinus rhythm with rare atrial ectopy. PHYSICAL EXAMINATION: VITAL SIGNS: Blood pressure , respirations 18, afebrile, heart rate 59 to 84. LUNGS: Clear. CARDIAC: Regular. Normal S1, S2 with a fourth heart sound. ABDOMEN: Soft. EXTREMITIES: No edema. LABORATORY DATA: Troponin has decreased to 0.3. Natriuretic peptide is 9300. Albumin 2.3. Potassium 3.4. IMPRESSION: 1. Acute myocardial infarction. 2. Acute on chronic diastolic congestive heart failure. 3. Hypertensive heart disease. 4. Hypokalemia. 5. Parkinson disease with dementia. 6. Urinary tract infection. 7. Bradycardia, resolved with decreased dose of beta-blockers. PLAN: 1. Cardiac monitoring. 2. Antimicrobials. 3. Maintain beta-mary grace. 4. Titrate lisinopril. 5. Diuresis. Jose Armando David M.D. DR: JOAQUIN JOB#: [id number] CC:
[2020-05-06 04:00] VITALS: BP 144/78
[2020-05-06 07:55] LABS: ALANINE AMINOTRANSFERASE 63 U/L (12-78); ALBUMIN 2.5 G/DL (3.4-5.0); ALBUMIN/GLOBULIN RATIO 0.7 (1.0-2.7); ALKALINE PHOSPHATASE 98 U/L (46-116); ANION GAP 10 mmol/L (5-15); ASPARTATE AMINO TRANSFERASE 69 U/L (15-37); BILIRUBIN,TOTAL 0.6 MG/DL (0.2-1.0); BLOOD UREA NITROGEN 8 mg/dL (7-18); CALCIUM 8.5 MG/DL (8.5-10.1); CARBON DIOXIDE 24 MMOL/L (21-32); CHLORIDE 102 MMOL/L (98-107); CREATININE 0.9 MG/DL (0.55-1.30); POTASSIUM 3.7 MMOL/L (3.5-5.1); SODIUM 136 MMOL/L (136-145)
[2020-05-06 08:00] VITALS: BP 139/76
[2020-05-06] MEDS: rOPINIRole 0.25mg tab ORAL SCH ×3 (08:47→17:36)
[2020-05-06] MEDS: Heparin 5000 units/ml inj SUBQ SCH ×2 (08:47→21:50)
[2020-05-06] MEDS: Aspirin EC 81mg tab ORAL SCH (08:47)
[2020-05-06] MEDS: Levodopa/Carbidopa 25/100 tab ORAL SCH ×3 (08:47→17:36)
[2020-05-06] MEDS: Lisinopril 20mg tab ORAL SCH ×2 (08:48→21:51)
--- NOTE | 2020-05-06 10:38 | Infectious Diseases Prog Note ---
Assessment/Plan Assessment/Plan antibiotics : ceftriaxone A 1. e.coli sepsis secondary to UTI 2. e.coli UTI 3. pneumonia COVID 19 test negative x 2 4. hypertension P 1. d/c ceftriaxone 2. start and continue po levoquin 5 more days 3. will follow up cultures Subjective Constitutional: Denies: fever, chills Respiratory: Denies: shortness of breath, dry cough Gastrointestinal/Abdominal: Denies: nausea, vomiting, diarrhea Musculoskeletal: Denies: pain Allergies: Coded Allergies: No Known Allergies (Unverified , 05/02/20) Objective Last 24 Hour Vital Signs Date Time Temp Pulse Resp B/P (MAP) Pulse Ox O2 Delivery O2 Flow Rate FiO2 05/06/20 08:48 139/76 05/06/20 08:48 87 139/76 05/06/20 08:00 98.9 87 17 139/76 (97) 98 05/06/20 04:00 64 05/06/20 04:00 98.1 67 19 144/78 (100) 95 05/06/20 00:00 68 05/06/20 00:00 98.1 68 19 172/80 (110) 98 05/05/20 21:10 169/79 05/05/20 21:10 64 169/79 05/05/20 21:00 Room Air 05/05/20 20:00 63 05/05/20 20:00 96.4 64 19 167/79 (108) 98 05/05/20 16:00 98.1 59 18 156/86 (109) 05/05/20 16:00 63 05/05/20 12:00 64 05/05/20 11:59 97.9 57 19 125/52 (76) 94 Height (Feet): 5 Height (Inches): 1.00 Weight (Pounds): 110 Respiratory/Chest: lungs clear Cardiovascular: normal rate, regular rhythm, no gallop/murmur Abdomen: soft, non tender Extremities: no edema Laboratory Tests Test 05/06/20 06:29 Sodium Level 136 MMOL/L (136-145) Potassium Level 3.7 MMOL/L (3.5-5.1) Chloride Level 102 MMOL/L (98-107) Carbon Dioxide Level 24 MMOL/L (21-32) Anion Gap 10 mmol/L (5-15) Blood Urea Nitrogen 8 mg/dL (7-18) Creatinine 0.9 MG/DL (0.55-1.30) Estimat Glomerular Filtration Rate > 60 mL/min (>60) Glucose Level 122 MG/DL (74-106) H Calcium Level 8.5 MG/DL (8.5-10.1) Magnesium Level 1.7 MG/DL (1.8-2.4) L Total Bilirubin 0.6 MG/DL (0.2-1.0) Aspartate Amino Transf (AST/SGOT) 69 U/L (15-37) H Alanine Aminotransferase (ALT/SGPT) 63 U/L (12-78) Alkaline Phosphatase 98 U/L (46-116) Troponin I 0.197 ng/mL (0.000-0.056) Total Protein 6.3 G/DL (6.4-8.2) L Albumin 2.5 G/DL (3.4-5.0) L Globulin 3.8 g/dL Albumin/Globulin Ratio 0.7 (1.0-2.7) L Current Medications Medications (Trade) Dose Ordered Sig/Trevor Route PRN Reason Start Time Stop Time Status Last Admin Dose Admin Acetaminophen (Tylenol) 500 mg Q4H PRN ORAL Mild Pain (Pain Scale 1-3) 05/02/20 10:30 06/01/20 10:29 05/03/20 02:32 Aspirin (Ecotrin) 81 mg DAILY ORAL 05/02/20 10:30 06/16/20 10:29 05/06/20 08:47 Carbidopa/Levodopa (Sinemet 25/100) 1 tab THREE TIMES A DAY ORAL 05/02/20 20:00 06/01/20 19:59 05/06/20 08:47 Ceftriaxone Sodium 1 gm/ Dextrose 55 ml @ 110 mls/hr Q24H IVPB 05/05/20 12:00 05/12/20 11:59 05/05/20 12:07 Heparin Sodium (Porcine) (Heparin 5000 units/ml) 5,000 units EVERY 12 HOURS SUBQ 05/02/20 10:30 06/16/20 10:29 05/06/20 08:47 Lisinopril (PriniviL) 20 mg Q12HR ORAL 05/06/20 09:00 06/04/20 08:59 05/06/20 08:48 Magnesium Sulfate 100 ml @ 100 mls/hr Q1H IVPB 05/06/20 10:00 05/06/20 11:59 Metoprolol Tartrate (Lopressor) 25 mg Q12HR ORAL 05/03/20 21:00 08/01/20 20:59 05/06/20 08:48 Potassium Chloride (K-Dur) 20 meq DAILY ORAL 05/04/20 10:00 08/02/20 09:59 05/06/20 08:48 Ropinirole HCl (Requip) 0.25 mg THREE TIMES A DAY ORAL 05/02/20 20:30 06/01/20 20:29 05/06/20 08:47 Trupti Nuñez MD May 06, 2020 10:38
[2020-05-06] MEDS ORDERED: Levofloxacin 500mg tab ORAL SCH (10:40)
[2020-05-06 12:00] VITALS: BP 152/76
[2020-05-06 16:00] VITALS: BP 162/87
--- NOTE | 2020-05-06 17:00 | General Progress Note ---
Assessment/Plan Problem List: (1) Anemia ICD Codes: D64.9 - Anemia, unspecified SNOMED: 709120276 Qualifiers: Qualified Codes: D64.9 - Anemia, unspecified (2) Sepsis ICD Codes: A41.9 - Sepsis, unspecified organism SNOMED: 60587839 Qualifiers: Qualified Codes: A41.9 - Sepsis, unspecified organism (3) UTI (urinary tract infection) ICD Codes: N39.0 - Urinary tract infection, site not specified SNOMED: 67612925 Qualifiers: Qualified Codes: N30.00 - Acute cystitis without hematuria (4) Suspected 2019 novel coronavirus infection ICD Codes: Z20.828 - Contact with and (suspected) exposure to other viral communicable diseases SNOMED: 123147762 (5) CAP (community acquired pneumonia) ICD Codes: J18.9 - Pneumonia, unspecified organism SNOMED: 959542901 Qualifiers: Qualified Codes: J18.9 - Pneumonia, unspecified organism (6) ACS (acute coronary syndrome) ICD Codes: I24.9 - Acute ischemic heart disease, unspecified SNOMED: 484648781 (7) Acute [place] ICD Codes: I21.9 - Acute myocardial infarction, unspecified SNOMED: 19659774 Status: stable Assessment/Plan: cont current rx- improving iv abx per id dc ivf BP rx swallow eval noted antiplt rx and B-blockade cards follow up pt/ot encourage po Subjective ROS Limited/Unobtainable: Yes Constitutional: Reports: no symptoms HEENT: Reports: no symptoms Cardiovascular: Reports: no symptoms Respiratory: Reports: cough Gastrointestinal/Abdominal: Reports: no symptoms Genitourinary: Reports: no symptoms Neurologic/Psychiatric: Reports: no symptoms Endocrine: Reports: no symptoms Hematologic/Lymphatic: Reports: no symptoms Allergies: Coded Allergies: No Known Allergies (Unverified , 05/02/20) All Systems: reviewed and negative except above Subjective no events. stable. no fever or chills. mild cough. Ucx with ecoli. covid neg x 2 duplex neg. abd us neg Objective Last 24 Hour Vital Signs Date Time Temp Pulse Resp B/P (MAP) Pulse Ox O2 Delivery O2 Flow Rate FiO2 05/06/20 16:00 98.2 63 18 162/87 (112) 98 05/06/20 12:00 96.6 57 18 152/76 (101) 96 7/15/20 11:48 55 05/06/20 09:00 Room Air 05/06/20 08:48 139/76 05/06/20 08:48 87 139/76 05/06/20 08:00 98.9 87 17 139/76 (97) 98 05/06/20 07:40 98 05/06/20 04:00 64 05/06/20 04:00 98.1 67 19 144/78 (100) 95 05/06/20 00:00 68 05/06/20 00:00 98.1 68 19 172/80 (110) 98 05/05/20 21:10 169/79 05/05/20 21:10 64 169/79 05/05/20 21:00 Room Air 05/05/20 20:00 63 05/05/20 20:00 96.4 64 19 167/79 (108) 98 Intake and Output 05/05/20 05/06/20 19:00 07:00 Intake Total 1680 ml 300 ml Output Total 910 ml Balance 770 ml 300 ml Intake Oral 1680 ml 300 ml Output Urine Total 910 ml # Voids 6 3 # Bowel Movements 2 2 Laboratory Tests 05/06/20 06:29: Sodium Level 136, Potassium Level 3.7, Chloride Level 102, Carbon Dioxide Level 24, Anion Gap 10, Blood Urea Nitrogen 8, Creatinine 0.9, Estimat Glomerular Filtration Rate > 60, Glucose Level 122H, Calcium Level 8.5, Magnesium Level 1.7L, Total Bilirubin 0.6, Aspartate Amino Transf (AST/SGOT) 69H, Alanine Aminotransferase (ALT/SGPT) 63, Alkaline Phosphatase 98, Troponin I 0.197H, Total Protein 6.3L, Albumin 2.5L, Globulin 3.8, Albumin/Globulin Ratio 0.7L Height (Feet): 5 Height (Inches): 1.00 Weight (Pounds): 113 Objective General Appearance: WD/WN, no apparent distress, alert EENT: PERRL/EOMI, normal ENT inspection Neck: non-tender, normal alignment Cardiovascular: normal peripheral pulses, normal rate, regular rhythm Respiratory/Chest: chest wall non-tender, lungs clear, normal breath sounds Abdomen: normal bowel sounds, non tender, soft, no organomegaly Edema: no edema noted Arm (L), no edema noted Arm (R) Skin: normal pigmentation Lymphatic: normal anterior cervical (L), normal anterior cervical (R) Arsh Villa MD May 06, 2020 17:00
[2020-05-06 20:00] VITALS: BP 153/72
[2020-05-07] VITALS: BP_SYST 130; BP_SYST 150; BP_DIAS 75
[2020-05-07 04:00] VITALS: BP 158/73
--- NOTE | 2020-05-07 04:15 | Progress Note ---
DATE: 05/06/2020 SUBJECTIVE: No chest pain. Less short of breath. Blood pressure parameters are slightly better. Monitor with no bradycardias, sinus rhythm persists with rare atrial ectopy. PHYSICAL EXAMINATION: VITAL SIGNS: Blood pressure 162/87, pulse 63, respirations 18. LUNGS: Clear. CARDIAC: Regular. Normal S1 and S2 with a 1/6 systolic murmur at lower left sternal border. ABDOMEN: Soft. EXTREMITIES: No edema. IMPRESSION: 1. Acute myocardial infarction, resolved. 2. Lactic acidosis. 3. Hypertensive heart disease with labile blood pressure. 4. Degenerative aortic valve disease. 5. Axrmjzqi-ho-amyrvz pulmonary hypertension. 6. Sinus bradycardia, resolved on lower beta-mary grace dosing. 7. Parkinson disease with dementia. PLAN: 1. Advance antihypertensives. Add long-acting nitrates. 2. Continue beta-mary grace and anti-platelet therapy. 3. Additional diuresis. 4. Discharge planning. 5. Avoiding statin drug due to very low lipid parameters. Jose Armando David M.D. DR: VERNON JOB#: [id number] CC:
[2020-05-07 08:00] VITALS: BP 164/84
[2020-05-07] MEDS ORDERED: Metoprolol Succinate XL 50mg tab ORAL SCH (09:00)
[2020-05-07] MEDS ORDERED: Imdur 30mg tab ORAL SCH (09:00)
[2020-05-07] MEDS ORDERED: Lisinopril 20mg tab ORAL SCH (09:00)
--- NOTE | 2020-05-07 09:27 | Infectious Diseases Prog Note ---
Assessment/Plan Assessment/Plan A; 1. Pneumonia, COVID19 test X 2 negative. 2. Urinary tract infection. 3. Hypertension. 4. Elevated liver function tests. 5. Elevated troponin 6. anemia 7. E.coli sepsis PLAN: 1. Continue Levaquin X 4 days Subjective ROS Limited/Unobtainable: Yes Constitutional: Denies: fever Allergies: Coded Allergies: No Known Allergies (Unverified , 05/02/20) Objective Last 24 Hour Vital Signs Date Time Temp Pulse Resp B/P (MAP) Pulse Ox O2 Delivery O2 Flow Rate FiO2 05/07/20 08:00 96.8 76 20 164/84 (110) 96 05/07/20 04:00 54 05/07/20 04:00 98.6 61 18 158/73 (101) 92 05/07/20 00:00 52 05/07/20 00:00 97.9 61 19 150/75 (100) 92 05/06/20 21:51 153/72 05/06/20 21:51 67 153/72 05/06/20 21:00 Room Air 05/06/20 20:00 97.9 67 19 153/72 (99) 95 05/06/20 20:00 62 05/06/20 16:00 98.2 63 18 162/87 (112) 98 05/06/20 15:30 61 05/06/20 12:00 96.6 57 18 152/76 (101) 96 05/06/20 11:48 55 Height (Feet): 5 Height (Inches): 1.00 Weight (Pounds): 113 General Appearance: no acute distress HEENT: mucous membranes moist Respiratory/Chest: lungs clear Cardiovascular: normal rate Abdomen: soft, non tender Extremities: no edema Neurologic/Psychiatric: alert, responsive Current Medications Medications (Trade) Dose Ordered Sig/Trevor Route PRN Reason Start Time Stop Time Status Last Admin Dose Admin Acetaminophen (Tylenol) 500 mg Q4H PRN ORAL Mild Pain (Pain Scale 1-3) 05/02/20 10:30 06/01/20 10:29 05/03/20 02:32 Aspirin (Ecotrin) 81 mg DAILY ORAL 05/02/20 10:30 06/16/20 10:29 05/06/20 08:47 Carbidopa/Levodopa (Sinemet /) 1 tab THREE TIMES A DAY ORAL 05/02/20 20:00 06/01/20 19:59 05/06/20 17:36 Heparin Sodium (Porcine) (Heparin 5000 units/ml) 5,000 units EVERY 12 HOURS SUBQ 05/02/20 10:30 06/16/20 10:29 05/06/20 21:50 Isosorbide Mononitrate (Imdur) 30 mg DAILY ORAL 05/07/20 09:00 06/06/20 08:59 Levofloxacin (Levaquin) 250 mg DAILY ORAL 05/07/20 09:00 05/14/20 08:59 Lisinopril (PriniviL) 40 mg DAILY ORAL 05/07/20 09:00 06/06/20 08:59 Metoprolol Succinate (Toprol XL) 50 mg DAILY ORAL 05/07/20 09:00 08/05/20 08:59 Potassium Chloride (K-Dur) 20 meq DAILY ORAL 05/04/20 10:00 08/02/20 09:59 05/06/20 08:48 Ropinirole HCl (Requip) 0.25 mg THREE TIMES A DAY ORAL 05/02/20 20:30 06/01/20 20:29 05/06/20 17:36 Celio Hwang MD May 07, 2020 09:27
[2020-05-07] MEDS: rOPINIRole 0.25mg tab ORAL SCH (09:37)
[2020-05-07] MEDS: Levodopa/Carbidopa 25/100 tab ORAL SCH (09:38)
[2020-05-07] MEDS: Heparin 5000 units/ml inj SUBQ SCH (09:38)
[2020-05-07] MEDS: Aspirin EC 81mg tab ORAL SCH (09:39)
[2020-05-07] MEDS ORDERED: ASPIRIN EC81 MG ORAL (11:06)
[2020-05-07] MEDS ORDERED: ISOSORBIDE MONO30 M1 ORAL (11:06)
[2020-05-07] MEDS ORDERED: LEVOFLOXACIN250 MG ORAL (11:06)
[2020-05-07 11:52] VITALS: BP 176/91
--- NOTE | 2020-05-08 01:44 | Progress Note ---
DATE: 05/07/2020 CARDIOLOGY PROGRESS NOTE SUBJECTIVE: The patient has no chest pain or shortness of breath. She is anxious to go home. No fevers. Urination without discomfort. OBJECTIVE: VITAL SIGNS: Vitals slightly elevated with blood pressure up to 164/84, oxygen saturation 95%. Monitor, sinus rhythm, occasional bradycardia in the 50s, asymptomatic. LUNGS: Clear. CARDIAC: Regular. Normal S1, S2. No ectopy. There is a 1/6 systolic apical murmur. ABDOMEN: Soft. EXTREMITIES: No edema. NEUROLOGIC: Positive non-intention tremor. IMPRESSION: 1. Acute myocardial infarction, uncomplicated. 2. Hypertensive heart disease with labile blood pressure. 3. Degenerative valve disease of no hemodynamic significance. 4. Hypertensive heart disease with labile blood pressure. 5. Acute on chronic diastolic congestive heart failure, compensated following diuresis. 6. Hypokalemia, corrected. 7. Parkinson's disease with dementia, on therapy. PLAN: Discussed with daughter. She feels that patient would recover better at home rather than at a long-term facility. Home health will be arranged for PT and nursing. Discharge medication regimen was reviewed with the patient's family members. Outpatient Cardiology followup was arranged within 2 weeks time. The patient's family member namely her daughter was advised to contact me or Dr. Villa emergently should there be any decline in patient's condition while at home. Additional blood pressure management may be required, but this will be determined in the outpatient setting where patient will be more relaxed and less confused and agitated. Jose Armando David M.D. DR: TAY JOB#: [id number] CC:
--- NOTE | 2020-05-11 12:02 | Discharge Summary ---
Discharge Summary Discharge Summary _ DATE OF ADMISSION: 05/02/2020 DATE OF DISCHARGE:05/07/2020 DISCHARGED BY: Dr. Villa REASON FOR ADMISSION: 80 years old female with past medical history of hypertension, presented to emergency department with shortness of breath and fever for 1 day. Family also found the patient was altered and was shaking. She continued coughing and had shortness of breath. No chest pain . No vomiting ,no abdominal pain ,no diarrhea. Upon evaluation patient was febrile. Laboratory work-up revealed leukocytosis with WBC 13.8, lactic acid 2.5. Chest x-ray revealed left lower lobe infiltrate. Urinalysis was consistent with UTI. Laboratory work-up also revealed elevated troponin 0.456 Rapid COVID-19 was negative. Septic work-up initiated . Patient received IV fluids , pancultured , started on empiric antibiotic. Patient received aspirin and admitted for further management. CONSULTANTS: toll booth operator Dr. David ID specialist Dr. Nuñez HOSPITAL COURSE: Patient admitted to telemetry floor. Patient was continued on aspirin and beta-blockade. Journeyman Operator Assistant followed. Serial troponin initially trended up with the highest 1.899, and then started to trend down. ECG showed no ST changes. Echocardiogram demonstrated preserved ejection fraction of 65% with no evidence of left ventricular hypertrophy. No evidence of pericardial effusion. Moderate mitral regurgitation. Right ventricular systolic pressure of 55 consistent with moderate pulmonary hypertension. Per toll booth operator patient had acute myocardial infarction along with acute on chronic diastolic congestive heart failure. Diuresis provided with close monitoring of volumes and cardiorenal parameters. Blood pressure was managed with beta-blockade, JAYCE inhibitor, long-acting Imdur and diuretic. Supplemental oxygen was on board as needed to keep pulse oximetry above 92%. Pulmonary toilet provided. Venous duplex bilateral lower extremity revealed no evidence of acute DVT. DVT prophylaxis provided. Patient noted to have bradycardia , which resolved with decreased dose of beta- mary grace. Lipid panel was stable. No need for statin. Patient initially was kept in isolation . SARS COV2 by PCR was not detected. Blood culture revealed E. coli and urine culture revealed E. coli. Bacteremia was due to UTI. Antibiotic regimen optimized as per ID specialist recommendation. Home medication continued. Renal parameters and electrolytes were closely monitored, electrolytes corrected as needed. Potassium was replaced. Elevated AST noted , trending down. Abdominal ultrasound was negative for gallstones, dilated bile ducts. No significant abdominal abnormality. Patient clinically stabilized and was ready for discharge home with home health services. FINAL DIAGNOSES: E. coli sepsis secondary to UTI E. coli UTI Pneumonia Lactic acidosis Acute myocardial infarction Acute on chronic diastolic congestive heart failure, now compensating following diuresis Hypertensive heart disease with labile blood pressure Degenerative valve disease (of no hemodynamic significance ) Moderate to severe pulmonary hypertension Sinus bradycardia - resolved with lower dose of beta-mary grace Parkinson disease with dementia Suspected COVID-19 - ruled out DISCHARGE MEDICATIONS: See Medication Reconciliation list. DISCHARGE INSTRUCTIONS: Patient was discharged home with home health services. Follow up with primary care provider in one week. I have been assigned to dictate discharge summary for this account. I was not involved in the patient's management. Natalia Baez NP May 11, 2020 12:02
== END 2020-05-07 12:00 | disposition home health service (06) | DRG 871 ==
LOC: EDBD 00:34 → EMR 01:08 → 2E 02:06 → EDBEDREQ 02:48 → 2E 05-04 13:37
DX: A41.51 Sepsis due to Escherichia coli [E. coli] (principal); I21.4 Non-ST elevation (NSTEMI) myocardial infarction; J18.9 Pneumonia, unspecified organism; I50.33 Acute on chronic diastolic (congestive) heart failure; N39.0 Urinary tract infection, site not specified; E87.1 Hypo-osmolality and hyponatremia; E44.0 Moderate protein-calorie malnutrition; R65.20 Severe sepsis without septic shock; G20 Parkinson's disease; E87.8 Other disorders of electrolyte and fluid balance, not elsewhere classified; Z20.828 Contact with and (suspected) exposure to other viral communicable diseases; I11.9 Hypertensive heart disease without heart failure; F02.80 Dementia in other diseases classified elsewhere, unspecified severity, without behavioral disturbance, psychotic disturbance, mood disturbance, and anxiety; I27.20 Pulmonary hypertension, unspecified; R00.1 Bradycardia, unspecified; I11.0 Hypertensive heart disease with heart failure; D64.9 Anemia, unspecified
CPT/HCPCS: 36415; 71045; 76700; 80053; 80061; 81003; 82248; 82550; 82553; 82728; 83605; 83735; 83880; 84484; 85025; 85379; 86140; 87040; 87086; 87181; 92610; 93005; 93306; 93970; 96361; 96365; 96367; 96375; 99291; J7030; J8499; U0002